=== PATIENT | female | born 1960 | race Caucasian/White ===

== ENCOUNTER → 2024-11-12 09:32 | Outpatient (REF) | payer BC, SELFPAY | LOC: HWWDC 09:32 | PROVIDERS: ATTENDING PHYSICIAN Family Medicine | DX: Z12.31 Encounter for screening mammogram for malignant neoplasm of breast (principal) | CPT/HCPCS: 77063; 77067 ==

== ENCOUNTER → 2025-02-20 09:25 | Outpatient (REF) | payer BC, SELFPAY | LOC: HWRAD 09:25 | PROVIDERS: ATTENDING PHYSICIAN Family Medicine | DX: M54.16 Radiculopathy, lumbar region (principal) | CPT/HCPCS: 72100 ==

== ENCOUNTER 2025-03-15 06:41 | Emergency (ER) | payer BC, SELFPAY ==
[2025-03-15 06:44] VITALS: BP 188/74
[2025-03-15 07:23] VITALS: BP 157/65
--- NOTE | 2025-03-15 07:23 | ED.GENMED ---
History of Present Illness
General
Chief Complaint: Abdominal Symptoms
Source: patient
Exam Limitations: none
Time Seen by Provider: 03/15/25 07:07
History of Present Illness
History of Present Illness:
64-year-old female presents with multiple complaints but main reason is for nausea and vomiting onset today. She had a knee replacement 3 years ago and her mobility has not been the same since. She also notes pain to the lower back that radiates
down the left lateral thigh into the top of the knee and occasionally into her left toes. She uses a cane when ambulating but typically does not need it. Her notices that her ambulatory status and her gait has been not as well recently.
Patient has been treated for depression by her psychiatrist and recently was started on Cymbalta, bupropion and Ativan. She stopped the bupropion and Cymbalta as it was not making her feel well. She only took couple days. She notes nausea over
the past week without significant abdominal pain. No known sick contacts or fever. No other complaints at this time
Past History
Past History
ED Past Medical History: None
ED Past Surgical History: Negative Cardiac, Cholecystectomy, or Gynecological
Social History
Tobacco: Non-smoker
Alcohol: None
Drug: None
Personal:
Living: with family
Employment: Employed
Family History
Family History: Hypertension and CAD; Negative Early CAD
Phy Exam
Physical Exam
Physical Exam:
General: Well-appearing female no acute respiratory distress
HEENT normal cephalic atraumatic neck supple
Heart: Regular rate and rhythm
Lungs: Clear no wheeze
Abdomen is soft nontender
Skin is warm no rash
Neurologic exam: Alert and oriented blunted affect tremor noted
Psychiatric exam: Admits to depression states she wants to go home
Course
Orders/Labs/Results
Orders:
Orders
03/15/25 07:20
Electrocardiogram (*1) Urgent
Reason for Study: Abdominal Pain
EKG- Treatment ONCE
0.9% Sodium Chloride 1000 ml [Nss] 1,000 ml IV BOLUS
Ketorolac [Toradol] 15 mg IV NOW STA
Ondansetron Injectable [Zofran] 4 mg IV NOW STA
03/15/25 07:28
Complete Blood Count/With Diff Urgent
Comprehensive Metabolic Panel Urgent
Lipase Urgent
Troponin I Urgent
Abnormal Lab Results
03/15/25
07:28
MPV 10.9 H fL
(7.4-10.4)
Absolute Monos (auto) 0.7 H 10^3/uL
(0.1-0.6)
Monocytes % 10.1 H %
(1.7-9.3)
Glucose 107 H mg/dl
(70-99)
03/15/25 07:28
03/15/25 07:28
Vital Signs
Initial and Last Documented VS:
Initial Vital Signs
Temp Pulse Resp BP Pulse Ox
97.3 F 90 20 188/74 97
03/15/25 06:44 03/15/25 06:44 03/15/25 06:44 03/15/25 06:44 03/15/25 06:44
Last Documented Vital Signs
Temp Pulse Resp BP Pulse Ox
97.3 F 93 7 157/65 93
03/15/25 06:44 03/15/25 07:30 03/15/25 07:30 03/15/25 07:23 03/15/25 07:30
MDM/Problems Addressed
Differential Diagnosis Includes:
Patient main reason for visit is vomiting with nausea today. The nausea has been persistent over a week. She notes decreased oral intake. Concern for dehydration or electrolyte abnormality. No significant pain on exam considered imaging but will
hold off for now. Will check labs however and treat symptoms.
*Pulse Oximetry
SaO2: 97
Oxygen Mode of Delivery: Room air
Patient hypoxic: no
*Critical Care Note
Total Time (30-74mins, 75-104mins- exclusive of procedures): Not Applicable
Update Note
Update Note:
EKG personally reviewed and demonstrates sinus rhythm with a rate of 81 no ischemic changes labs reviewed and are negative for acute finding. Troponin undetectable. Patient's nausea is resolved. She ambulated to the bathroom here.
Upon further discussion I did requestion the tremor in the affect that she has. She has been evaluated by neurology several years ago but I feel that it may be worth her seeing a neurologist again as an outpatient. They are in agreement. Zofran
was prescribed for nausea. No indication for admission. Stable for discharge
ED Attending Note
-
Portions of this chart may have been created with voice recognition software.� Occasional wrong word or��sound alike� substitutions may have occurred due to the inherent limitations of voice recognition software.
Discharge Plan
Departure
Patient Disposition: Home (Routine Discharge)
Date of Disposition: 03/15/25
Time of Disposition: 08:47
Patient with high blood pressure during this ER visit?: No
Discharge Problem:
Nausea
Instructions: Nausea and Vomiting, Adult (DC)
Prescriptions:
New
ondansetron 4 mg tablet,disintegrating
4 mg PO Q8H PRN (Reason: nausea and vomiting) Qty: 10 0RF
No Action
levofloxacin 500 MG tablet
500 mg PO QPM
Patient Comments:
has 3 doses left
Prednisone
1 tab PO BID
Patient Comments:
pt not sure dosage; states med was in a pack and is tapering down. has only 2 tabs left to take and then complete: one tab tonight and one tab in am /8/10 and then finished.
codeine-guaifenesin [Guaiatussin AC] 200 MG/20 MG liquid
5 - 10 ml PO .Q4-6HPRN PRN (Reason: COUGH) Qty: 6 0RF
albuterol sulfate 1 PUFF HFA aerosol inhaler
1 - 2 puff inhalation .Q4-6HPRN PRN (Reason: WHEEZING) Qty: 1 0RF
hydrocodone-acetaminophen 5 MG/500 MG tablet
1 tab PO .Q4-6HPRN PRN (Reason: PAIN) Qty: 20 0RF
Activity Restrictions/Additional Instructions:
Rest. Use Zofran as needed for nausea. Return if worse otherwise follow-up with your doctor. Consider recheck with neurology as well
Interventions
Interventions:
*Risk Screen - Suicide Last Done: 03/15/25 06:44
*General Assessment Last Done: 03/15/25 06:44
*Neglect/Abuse Screening Last Done: 03/15/25 06:44
*ED- Fall Risk Assessment Last Done: 03/15/25 06:44
*ED COVID-19 Vaccine History Last Done: 03/15/25 06:44
*ED Influenza Vaccine History Last Done: 03/15/25 06:44
MY-Lnkbrv-Enxfrvtkqa Assessment Last Done: 03/15/25 07:55
Discharge Date and Time
Print Language: MAURITANIAN
[2025-03-15] MEDS: TORADOL 15 MG IV (07:31)
[2025-03-15] MEDS: ZOFRAN 4 MG IV (07:31)
[2025-03-15] MEDS: NSS 1000 IV (07:31)
[2025-03-15 07:54] LABS: Hematocrit 39.1 % (37.0-47.0); Hemoglobin 13.4 g/dL (12.0-16.0); Mean Corp Hgb Conc. 34.3 g/dL (33.0-37.0); Mean Corpuscular Volume 89.9 fL (81.0-99.0); Nucleated Red Blood Cells % 0 %; Platelet Count 226 10^3/uL (130-400); Red Cell Dist. Width 12.3 % (11.5-14.5)
[2025-03-15 07:55] LABS: ALT (SGPT) 21 U/L (0-35); AST (SGOT) 25 U/L (14-36); Albumin 4.4 g/dl (3.5-5.0); Alkaline Phosphatase 39 U/L (38-126); Blood Urea Nitrogen 16 mg/dl (7-17); Calcium 9.6 mg/dl (8.4-10.2); Carbon Dioxide 27 mmol/L (22-30); Chloride 106 mmol/L (98-107); Glucose 107 mg/dl (70-99); Lipase 59 U/L (23-300); Potassium 3.5 mmol/L (3.5-5.1); Sodium 141 mmol/L (135-145); Total Protein 6.9 g/dl (6.3-8.2); eGFR > 60.00
[2025-03-15 08:00] VITALS: BP 161/72
[2025-03-15 08:06] LABS: Troponin I < 0.012 ng/ml
== END 2025-03-15 09:05 | disposition home or self-care (01) ==
LOC: EMR 06:41
PROVIDERS: Physician Assistant; EMERGENCY PHYSICIAN Emergency Medicine; FAMILY PHYSICIAN Family Medicine
DX: R11.0 Nausea (principal); F32.A Depression, unspecified; T43.216A Underdosing of selective serotonin and norepinephrine reuptake inhibitors, initial encounter; T43.296A Underdosing of other antidepressants, initial encounter; Z91.128 Patient's intentional underdosing of medication regimen for other reason; Z96.659 Presence of unspecified artificial knee joint
CPT/HCPCS: 99284; 96374; 96375; 96361; 80053; 83690; 84484; 85025; 93005